=== PATIENT | female | born 1985 | race American Indian/Alaskan Native ===

== ENCOUNTER 2022-03-10 15:28 | Emergency (ER) | payer SELFPAY ==
[2022-03-10 15:57] VITALS: BP 158/87
== END 2022-03-10 20:30 | disposition left against medical advice (07) ==
LOC: ED 15:28
DX: R22.43 Localized swelling, mass and lump, lower limb, bilateral (principal); Z53.21 Procedure and treatment not carried out due to patient leaving prior to being seen by health care provider

== ENCOUNTER 2022-03-21 15:22 | Emergency (ER) | payer SELFPAY ==
[2022-03-21 17:41] VITALS: BP 147/96
[2022-03-22] MEDS ORDERED: HYDROcodone/ACETAMINOPHEN 5-325 MG TAB PO STA (00:25)
--- NOTE | 2022-03-22 02:47 | Vascular Lab Report ---
DUPLEX DOPPLER LOWER EXTREMITY VEINS, LEFT INDICATION / CLINICAL INFORMATION: lower ext swelling and pain. TECHNIQUE: Duplex doppler imaging was performed through the veins of the left lower extremity using venous compr ession and other maneuvers. COMPARISON: None available. FINDINGS: LEFT COMMON FEMORAL VEIN: Negative. LEFT FEMORAL VEIN: Negative. LEFT POPLITEAL VEIN: Negative. LEFT CALF VEINS: Negative. ADDITIONAL FINDINGS: None. IMPRESSION: 1. No sonographic evidence for DVT in the left lower extremity. Signer Name: Ilir Norton MD Signed: 03/22/2022 2:43 AM Workstation Name: [id number]
--- NOTE | 2022-03-22 04:33 | Emergency Department Report ---
ED Lower Extremity HPI - General Chief Complaint: Extremity Problem,Nontraumatic Stated Complaint: SWOLLEN LEFT LEG PAIN Time Seen by Provider: 03/22/22 00:24 Source: patient Mode of arrival: Ambulatory Limitations: No Limitations - History of Present Illness Initial Comments: 37-year-old female with metformin complaining of painful swelling to the left lower extremity which has been present for the last 2 weeks and not improving. She thinks she may have just overworked at work (amount of walking and and pushing and pulling. She does sit for prolonged periods of time off and on but has no history of a DVT. Pain is dull and throbbing worse with palpation and range of motion and swelling was reported when she is seated Injury: Leg: Left Place: home Improves With: nothing Worsens With: nothing Associated Symptoms: swelling. denies: able to partially bear weight, ambulatory - Related Data Previous Rx's Medication Instructions Recorded Last Taken Type Promethazine [Phenergan] 25 mg PO Q6H PRN #12 tab 08/18/13 Unknown Rx Amoxicillin [Trimox CAP] 500 mg PO Q8H #30 capsule 10/01/14 Unknown Rx Ibuprofen [Motrin 800 MG tab] 800 mg PO Q8H #30 tablet 10/01/14 Unknown Rx Promethazine /Codeine 5 ml PO Q6H PRN #120 ml 10/01/14 Unknown Rx [Phenergan/Codeine 6.25-10 mg/5 ml] Ibuprofen [Motrin] 800 mg PO Q8HR PRN #15 tablet 09/30/16 Unknown Rx Penicillin Vk [Veetids TAB] 250 mg PO QID #28 tablet 09/30/16 Unknown Rx Ketorolac [Toradol] 10 mg PO Q6H PRN #14 03/22/22 Unknown Rx Allergies Allergy/AdvReac Type Severity Reaction Status Date / Time No Known Allergies Allergy Unverified 08/18/13 12:33 ED Review of Systems ROS: Stated complaint: SWOLLEN LEFT LEG PAIN Other details as noted in HPI Comment: All other systems reviewed and negative ED Past Medical Hx - Past Medical History Hx Hypertension: Yes Additional medical history: heart murmur, HLN - Surgical History Additional Surgical History: - Social History Smoking Status: Current Every Day Smoker Substance Use Type: None - Medications Home Medications: Home Medications Medication Instructions Recorded Confirmed Last Taken Type Promethazine [Phenergan] 25 mg PO Q6H PRN #12 tab 08/18/13 Unknown Rx Amoxicillin [Trimox CAP] 500 mg PO Q8H #30 capsule 10/01/14 Unknown Rx Ibuprofen [Motrin 800 MG tab] 800 mg PO Q8H #30 tablet 10/01/14 Unknown Rx Promethazine /Codeine 5 ml PO Q6H PRN #120 ml 10/01/14 Unknown Rx [Phenergan/Codeine 6.25-10 mg/5 ml] Ibuprofen [Motrin] 800 mg PO Q8HR PRN #15 tablet 09/30/16 Unknown Rx Penicillin Vk [Veetids TAB] 250 mg PO QID #28 tablet 09/30/16 Unknown Rx Ketorolac [Toradol] 10 mg PO Q6H PRN #14 03/22/22 Unknown Rx ED Physical Exam - General Limitations: No Limitations General appearance: alert, in no apparent distress - Head Head exam: Present: atraumatic, normocephalic - Eye Eye exam: Present: normal appearance, PERRL, EOMI Pupils: Present: normal accommodation - ENT ENT exam: Present: mucous membranes moist - Neck Neck exam: Present: normal inspection - Respiratory Respiratory exam: Present: normal lung sounds bilaterally. Absent: respiratory distress - Cardiovascular Cardiovascular Exam: Present: regular rate, normal rhythm. Absent: systolic murmur, diastolic murmur, rubs, gallop - GI/Abdominal GI/Abdominal exam: Present: soft, normal bowel sounds - Extremities Exam Extremities exam: Present: normal inspection - Back Exam Back exam: Present: normal inspection - Neurological Exam Neurological exam: Present: alert, oriented X3 - Psychiatric Psychiatric exam: Present: normal affect, normal mood - Skin Skin exam: Present: warm, dry, intact, normal color. Absent: rash ED Course Vital Signs 03/21/22 17:38 Temperature 97.8 F Pulse Rate 77 Respiratory 18 Rate Blood Pressure 147/96 [Right] O2 Sat by Pulse 97 Oximetry Critical care attestation.: If time is entered above; I have spent that time in minutes in the direct care of this critically ill patient, excluding procedure time. ED Disposition Clinical Impression: No deep vein thrombosis (DVT), Left leg swelling, Strain of left calf muscle Disposition: HOME / SELF CARE / HOMELESS Is pt being admited?: No Does the pt Need Aspirin: No Condition: Stable Instructions: Muscle Strain, [id number], Medial Head Gastrocnemius Tear, How to Use Cold Therapy Prescriptions: Ketorolac [Toradol] 10 mg PO Q6H PRN #14 PRN Reason: Pain Referrals: [facility] [Provider Group] - 3-5 Days
== END 2022-03-22 05:29 | disposition home or self-care (01) ==
LOC: ED 15:22
DX: S86.912A Strain of unspecified muscle(s) and tendon(s) at lower leg level, left leg, initial encounter (principal); Z86.718 Personal history of other venous thrombosis and embolism; M25.48 Effusion, other site; X58.XXXA Exposure to other specified factors, initial encounter; Y93.89 Activity, other specified; Y92.89 Other specified places as the place of occurrence of the external cause; Y99.8 Other external cause status
CPT/HCPCS: 99283